=== PATIENT | male | born 1975 | race Hispanic/Latino ===

== ENCOUNTER 2023-02-19 10:49 | Emergency (ER) | payer OTHER ==
[~2023-02-19] VITALS: Ht 177.8 cm; Wt 122.5 kg
[~2023-02-19 10:49] MED LIST: OMEP10CA5 PO
[2023-02-19] MEDS ORDERED: KETOROLAC 15MG/ML VIAL (15MG/ML) IM ONE (14:30)
[2023-02-19 15:29] VITALS: BP 152/94
== END 2023-02-19 15:38 | disposition home or self-care (01) ==
LOC: EDH 10:49
DX: S43.491A Other sprain of right shoulder joint, initial encounter (principal); Z98.890 Other specified postprocedural states; W18.39XA Other fall on same level, initial encounter; Y93.89 Activity, other specified; Y92.89 Other specified places as the place of occurrence of the external cause; Y99.8 Other external cause status
CPT/HCPCS: 99283; 73030; J1885

== ENCOUNTER 2023-06-12 15:44 | Emergency (ER) | payer BC, OTHER ==
[~2023-06-12] VITALS: Ht 177.8 cm; Wt 131.5 kg
[2023-06-12] MEDS ORDERED: 0.9%NACL 50ML 50 ML IV ONE (15:45)
[2023-06-12] MEDS ORDERED: ALTEPLASE 100 MG VIAL IVP ONE (15:45)
[2023-06-12 16:35] LABS: BASOPHILS # (AUTO) 0.07 K/uL (0.00-0.20); BASOPHILS % (AUTO) 0.6 % (0.0-5.0); EOSINOPHILS # (AUTO) 0.39 K/uL (0.00-0.70); EOSINOPHILS % (AUTO) 3.4 % (0.0-8.0); HEMATOCRIT 53.8 % (42-54); IMMATURE GRANULOCYTE ABSOLUTE 0.05 K/uL (0-1); LYMPHOCYTES # (AUTO) 2.8 K/uL (1.0-4.8); LYMPHOCYTES % (AUTO) 24.2 % (21.0-51.0); MEAN CORPUSCULAR HEMOGLOBIN 32.6 pg (27.0-33.0); MEAN CORPUSCULAR HGB CONC 34.2 g/dL (32.0-36.0); MEAN CORPUSCULAR VOLUME 95.4 fL (79-99); MONOCYTES % (AUTO) 9.1 % (3.0-13.0); NEUTROPHILS # (AUTO) 7.1 K/uL (1.8-7.7); NEUTROPHILS % (AUTO) 62.3 % (40.0-77.0); PLATELET COUNT (AUTO) 303 K/uL (130-400); RED BLOOD CELL COUNT(AUTO) 5.64 MIL/uL (4.50-6.20); RED CELL DISTRIBUTION WIDTH 12.9 % (11.0-15.5); WHITE BLOOD COUNT (AUTO) 11.4 K/uL (4.8-10.8)
[2023-06-12 16:55] LABS: CREATININE 1.2 mg/dL (0.5-1.5); POTASSIUM 3.7 mmol/L (3.5-5.1)
[2023-06-12 17:00] LABS: B-TYPE NATRIURETIC PEPTIDE 12 pg/mL (0-100)
[2023-06-12 17:02] LABS: ALBUMIN 3.8 g/dL (3.5-5.0); BILIRUBIN,TOTAL 0.6 mg/dL (0.2-1.0)
[2023-06-12 17:36] LABS: INR < 0.93 (0.85-1.15); PROTHROMBIN TIME 10.3 SEC (9.6-11.6)
[2023-06-12 17:37] LABS: PARTIAL THROMBOPLASTIN TIME 26.1 SEC (26.3-35.5)
[2023-06-12 17:50] VITALS: BP 121/66; PULSE 81; RESP 17; O2SAT 96
[2023-06-12] MEDS ORDERED: IOHEXOL-350 75 ML VIAL IV ONE (17:58)
== END 2023-06-12 18:26 | disposition short-term general hospital (02) ==
LOC: EDH 15:44
DX: I63.9 Cerebral infarction, unspecified (principal); Z98.890 Other specified postprocedural states
CPT/HCPCS: 99291; 70450; 82550; 83721; 84484; 80053; 83880; 85025; 85610; 85730; 36415; 71045; 93005; J2997; Q9967